=== PATIENT | male | born 1980 ===

== ENCOUNTER 2018-09-03 05:41 | Emergency (ER) | payer SELFPAY ==
[~2018-09-03] VITALS: Ht 180.3 cm; Wt 90.7 kg
[2018-09-03 05:49] VITALS: Ht 180.3 cm; Wt 90.7 kg
[2018-09-03 07:15] VITALS: BP 125/86
== END 2018-09-03 07:15 | disposition other institution (70) ==
LOC: ED 05:41
DX: S93.401A Sprain of unspecified ligament of right ankle, initial encounter (principal); F17.210 Nicotine dependence, cigarettes, uncomplicated; X58.XXXA Exposure to other specified factors, initial encounter; Y93.89 Activity, other specified; Y92.89 Other specified places as the place of occurrence of the external cause; Y99.8 Other external cause status
CPT/HCPCS: 99406; Q0092

== ENCOUNTER 2018-09-03 05:41 | Emergency (ER) | payer OTHER | END 2018-09-03 07:15 | disposition other institution (70) | LOC: ED 05:41 ==